=== PATIENT | female | born 1955 | race Caucasian/White ===

== ENCOUNTER 2017-11-13 16:39 | Inpatient (IN) | payer MEDICAID ==
[2017-11-13] MEDS ORDERED: HumuLIN R SC PRN (18:29)
[2017-11-13] MEDS: SNACK - Diabetic Appropriate PO SCH ×2 (18:31→20:00)
[2017-11-13] MEDS: NS 1000 ML 1,000 ML IV SCH (18:31)
[2017-11-13 18:59] LABS: BASOPHILS # (AUTO) 0.1 X10^3/uL (0.0-0.1); BASOPHILS % (AUTO) 1.2 % (0.2-1.0); EOSINOPHILS # (AUTO) 0.8 x10^3/uL (0.0-0.2); HEMATOCRIT 39.3 % (36.0-47.0); HEMOGLOBIN 13.4 g/dL (12.0-16.0); LYMPHOCYTES # (AUTO) 3.3 X10^3/uL (1.3-2.9); LYMPHOCYTES % (AUTO) 32.9 % (21.0-51.0); MEAN CORPUSCULAR HGB CONC 34.1 g/dL (33.0-35.0); MEAN CORPUSCULAR VOLUME 90.8 fL (80.0-100.0); MEAN PLATELET VOLUME 9.4 fL (7.4-11.0); MONOCYTES % (AUTO) 10.4 % (0.0-13.0); NEUTROPHILS # (AUTO) 4.8 x10^3/uL (2.2-4.8); NEUTROPHILS % (AUTO) 47.5 % (42.0-75.0); PLATELET COUNT 328 X10^3/uL (150.0-450.0); RED BLOOD COUNT 4.32 X10^6/uL (3.5-5.4); RED CELL DISTRIBUTION WIDTH 13.9 % (11.6-16.5)
[2017-11-13 19:06] LABS: ALANINE AMINOTRANSFERASE 20 Units/L (12-78); ALBUMIN 3.1 g/dL (3.4-5.0); ALKALINE PHOSPHATASE 115 Units/L (46-116); AMYLASE 37 Units/L (25-115); ASPARTATE AMINO TRANSFERASE 10 Units/L (15-37); BLOOD UREA NITROGEN 18 mg/dL (7-18); CALCIUM 8.9 mg/dL (8.5-10.1); CARBON DIOXIDE 26.6 mmol/L (21-32); CHLORIDE 103 mmol/L (98-107); COR CA(FOR HYPOALB) 9.6 mg/dL (8.5-10.1); COR NA(FOR HYPERGLY) 141 mmol/L (136-145); CREATININE 1.15 mg/dL (0.55-1.02); LIPASE 102 Units/L (73-393); MAGNESIUM 1.9 mg/dL (1.7-2.9); SODIUM 139 mmol/L (136-145); TOTAL PROTEIN 7.2 g/dL (6.4-8.2); eGFR BLACK RACES > 60 (>60); eGFR NON BLACK RACES 51 (>60)
[2017-11-13 19:08] LABS: BILIRUBIN,URINE NEGATIVE (NEGATIVE); BLOOD/HEMOGLOBIN,URINE NEGATIVE (NEGATIVE); GLUCOSE, URINE 4+ (NEGATIVE); KETONES,URINE NEGATIVE (NEGATIVE); LEUKOCYTE ESTERASE ,URINE NEGATIVE (NEGATIVE); NITRITES,URINE NEGATIVE (NEGATIVE); PROTEIN,URINE 1+ (NEGATIVE); UROBILINOGEN,URINE NORMAL (NORMAL)
[2017-11-13 19:14] LABS: APPEARANCE,URINE CLEAR (CLEAR); BACTERIA,URINE TRACE /HPF (NEGATIVE); COLOR,URINE YELLOW (YELLOW); HYALINE CASTS, URINE FEW /LPF (NEGATIVE); RBC,URINE 0-1 /HPF (NONE SEEN); SQUAMOUS EPITHELIAL CELL,UR MODERATE /HPF (NEGATIVE)
[2017-11-13] MEDS: DEMEROL INJ IVP PRN (19:25)
[2017-11-13] MEDS: COLACE CAP 100 MG PO SCH ×2 (20:00→21:00)
[2017-11-13 21:23] VITALS: BMI 31.9
[2017-11-14] MEDS: DEMEROL INJ IVP PRN ×5 (05:10→22:27)
[2017-11-14 06:10] LABS: BASOPHILS # (AUTO) 0.1 X10^3/uL (0.0-0.1); BASOPHILS % (AUTO) 1.1 % (0.2-1.0); EOSINOPHILS # (AUTO) 0.7 x10^3/uL (0.0-0.2); EOSINOPHILS % (AUTO) 8.1 % (0.9-2.9); HEMATOCRIT 37.6 % (36.0-47.0); HEMOGLOBIN 12.7 g/dL (12.0-16.0); LYMPHOCYTES # (AUTO) 3.7 X10^3/uL (1.3-2.9); LYMPHOCYTES % (AUTO) 42.7 % (21.0-51.0); MEAN CORPUSCULAR HEMOGLOBIN 30.9 pg (27.0-34.0); MEAN CORPUSCULAR HGB CONC 33.7 g/dL (33.0-35.0); MEAN CORPUSCULAR VOLUME 91.7 fL (80.0-100.0); MEAN PLATELET VOLUME 9.8 fL (7.4-11.0); MONOCYTES # (AUTO) 0.8 x10^3/uL (0.3-0.8); MONOCYTES % (AUTO) 9.7 % (0.0-13.0); NEUTROPHILS # (AUTO) 3.3 x10^3/uL (2.2-4.8); NEUTROPHILS % (AUTO) 38.4 % (42.0-75.0); PLATELET COUNT 286 X10^3/uL (150.0-450.0); RED CELL DISTRIBUTION WIDTH 13.9 % (11.6-16.5); WHITE BLOOD COUNT 8.6 X10^3/uL (3.6-10.0)
[2017-11-14 06:40] LABS: ALANINE AMINOTRANSFERASE 19 Units/L (12-78); ALBUMIN 2.7 g/dL (3.4-5.0); ALKALINE PHOSPHATASE 84 Units/L (46-116); ASPARTATE AMINO TRANSFERASE 14 Units/L (15-37); BLOOD UREA NITROGEN 19 mg/dL (7-18); CARBON DIOXIDE 28.4 mmol/L (21-32); CHLORIDE 107 mmol/L (98-107); COR NA(FOR HYPERGLY) 143 mmol/L (136-145); CREATININE 0.91 mg/dL (0.55-1.02); SODIUM 142 mmol/L (136-145); TOTAL PROTEIN 6.4 g/dL (6.4-8.2); eGFR BLACK RACES > 60 (>60); eGFR NON BLACK RACES > 60 (>60)
[2017-11-14] MEDS: NS 1000 ML 1,000 ML IV SCH ×2 (07:48→22:27)
[2017-11-14] MEDS: MILK OF MAGNESIA PO SCH (09:38)
--- NOTE | 2017-11-14 11:02 | MRI ---
MRI OF THE ABDOMEN WITHOUT IV CONTRAST - MRCP PROTOCOL Clinical indication: Intractable left lower quadrant abdominal pain Procedure: Multiplanar multi sequence MRI of the abdomen were obtained without the administration of intravenous contrast according to standard departmental MRCP protocol. Comparisons: None Findings: No significant ascites. Liver and spleen are grossly normal in appearance. Gallbladder absent. There is a filling defect within the distal common bile duct best seen on series 1301 image 64 measuring a pproximately 1.3 cm. The common bile duct is dilated to 1.2 cm. The main pancreatic duct is normal. No ductal dilatation. No large pancreatic masses. Adrenal glands are grossly normal. Kidneys demonstr ate normal cortical medullary differentiation. No hydronephrosis. Visualized bowel is grossly unremar kable. No suspicious lymph nodes. Impression: 1. Obstructing lesion within the distal common bile duct with proximal dilation as above. Reported By:
[2017-11-14] MEDS ORDERED: NULYTELY or GO-LYTELY PO SCH (14:00)
--- NOTE | 2017-11-14 14:26 | CT ---
HISTORY: Common bile duct stone on MRI. Abdominal pain in the right upper quadrant. Prior surgical hi story of cholecystectomy, COPD, asthma, diabetes and hyperlipidemia. Study: CT abdomen and pelvis with IV and oral contrast Comparison: MRI of the abdomen done 11/14/2017. Technique: Multiple axial images of the abdomen and pelvis were obtained from the lung bases to the pubic symphy sis during the administration of IV contrast. Oral contrast agents were also given. Coronal and sagi ttal images are also reviewed. Dose reduction techniques utilized automatic exposure control. Findings: The visualized portions of the lung bases are unremarkable. The liver, spleen, pancreas, kidneys, an d adrenal glands are unremarkable in their CT appearance. Gallbladder is surgically absent. There is intra and extrahepatic biliary ductal ectasia. Common bile duct measures about 1.3 cm in diameter. A filling defect is present within the distal common bile duct measures about 1.1 cm in diameter and ab out 1.33 cm in length. This is best seen on series 7, image 43 and on series 4, image 28.. No signif icant mesenteric lymphadenopathy or stranding can be observed. No free fluid or free air is seen wit hin the abdomen. No bowel wall thickening or bowel dilatation is present. The colon is unremarkable . Specifically, there is no diverticulosis noted within the sigmoid colon. The urinary bladder is gr ossly unremarkable. The uterus and ovaries are not identified and may have been surgically removed. T he bony structures are grossly intact. IMPRESSION: Evidence of intra and extrahepatic bile duct dilatation. A filling defect is present involving the di stal common bile duct as described. Surgically absent gallbladder, uterus and ovaries. Reported By:
--- NOTE | 2017-11-14 18:59 | DR.H&P ---
H&P - History & Physical for Day of: H&P Date: 11/13/17 - Chief Complaint Chief Complaint: ABDOMINAL PAIN, NV - Allergies Allergies/Adverse Reactions: Allergies Allergy/AdvReac Type Severity Reaction Status Date / Time codeine Allergy Verified 11/13/17 17:45 haloperidol [From Haldol] Allergy Verified 11/13/17 17:45 - History of Present Illness History of Present Illness: 62 WF ER ADMISSION WITH CO ABDOMINAL PAIN, BOWEL HABIT CHANGES AND N/V. CT ABD PELVIS ON ADMISSION. PT HAD MRCP PENDING - Past Medical History Past Medical History: Anxiety, Arthritis, Diabetes, GERD, Hypertension - Past Surgical History Surgical History: Cholecystectomy, Hysterectomy, Ortho Surgery - Family History Family Medical History: Diabetes Mellitus, Cancer, Hypertension - Social History Does patient currently use any type of tobacco product: Yes Have you used tobacco products in the last 12 months: Yes Type of Tobacco Use: Cigarettes Does any household member use tobacco: Yes Alcohol Use: None Drug Use: None, Prescription Drugs - Medications Home Medications: Acyclovir 400 mg PO Q8H 11/13/17 [History Confirmed 11/13/17] Carvedilol [COREG TAB 6.25 MG *] 6.25 mg PO BID 11/13/17 [History Confirmed ] Cetirizine HCl [Zyrtec] 10 mg PO DAILY 11/13/17 [History Confirmed 11/13/17] Citalopram 20 mg Tab [CELEXA 20 MG *] 2 tabs PO DAILY 11/13/17 [History Confirmed 11/13/17] Estradiol 1 mg PO DAILY 11/13/17 [History Confirmed 11/13/17] Furosemide 20 mg PO BID 11/13/17 [History Confirmed 11/13/17] Gemfibrozil 600 mg PO BID 11/13/17 [History Confirmed 11/13/17] Levocetirizine Dihydrochloride [Xyzal] 5 mg PO HS 11/13/17 [History Confirmed ] Levothyroxine Sodium [SYNTHROID 100 mcg *] 0.1 mg PO DAILY 11/13/17 [History Confirmed 11/13/17] Montelukast Sodium 10 mg PO DAILY 11/13/17 [History Confirmed 11/13/17] Omeprazole 40 mg PO DAILY 11/13/17 [History Confirmed 11/13/17] Potassium Chloride [K-Tab ER] 10 mg PO DAILY 11/13/17 [History Confirmed ] Promethazine HCl 25 mg PO Q4-6H PRN 11/13/17 [History Confirmed 11/13/17] Ranitidine HCl 300 mg PO BID 11/13/17 [History Confirmed 11/13/17] Temazepam 30 mg PO HS 11/13/17 [History Confirmed 11/13/17] - Review of Systems Constitutional: Chills, Weakness Eyes: No Symptoms Reported ENT: No Symptoms Reported Respiratory: No Symptoms Reported Cardiovascular: No Symptoms Reported Gastrointestinal: Nausea, Vomiting, Abdominal Pain Genitourinary: No Symptoms Reported Musculoskeletal: Back Pain, Leg Pain Skin: No Symptoms Reported Neurological: No Symptoms Reported - Physical Exam Vital Signs: Temperature 97.6 F Pulse Rate [Left Brachial] 69 Pulse Rate [Right Brachial] 72 Respiratory Rate 18 Blood Pressure [Left Arm] 107/71 Blood Pressure [Right Arm] 109/59 O2 Sat by Pulse Oximetry 96 Oriented: Normal Eyes: Normal Ear: Normal Nose: Normal Throat: Normal Respiratory: RLL Diminished, LLL Diminished Cardiovascular: Normal : Normal Auscultation: Bowel Sounds: Normal Palpation: Normal Tenderness: RUQ, Epigastric Skin: Decreased Turgur Musculoskeletal: Back:Lumbar Psychiatric: Anxiety Affect: Anxious Speech Pattern: Clear, Appropriate - Assessment/Plan (1) Abdominal pain Status: Acute Plan: ADMIT, MRCP. AM LABS, PAIN AND NAUSEA CONTROL. BLOOD SUGAR MONITORING. GENTLE IV HYDRATION. CONFIRM HOME MEDS (2) Hx of gallstones Status: Acute (3) Abnormal LFTs (liver function tests) Status: Acute (4) Arthralgia Status: Acute
[2017-11-14] MEDS: COLACE CAP 100 MG PO SCH (20:29)
[2017-11-14] MEDS: SNACK - Diabetic Appropriate PO SCH (22:10)
[2017-11-15] MEDS: ZOFRAN INJ 4 MG VIAL IVP PRN ×2 (01:13→11:43)
[2017-11-15] MEDS: DEMEROL INJ IVP PRN ×2 (05:06→10:10)
[2017-11-15 06:03] LABS: ALANINE AMINOTRANSFERASE 24 Units/L (12-78); ALBUMIN 2.8 g/dL (3.4-5.0); ALKALINE PHOSPHATASE 79 Units/L (46-116); ASPARTATE AMINO TRANSFERASE 21 Units/L (15-37); BLOOD UREA NITROGEN 8 mg/dL (7-18); CALCIUM 7.6 mg/dL (8.5-10.1); CARBON DIOXIDE 29.3 mmol/L (21-32); CHLORIDE 108 mmol/L (98-107); COR CA(FOR HYPOALB) 8.6 mg/dL (8.5-10.1); SODIUM 145 mmol/L (136-145); TOTAL PROTEIN 6.1 g/dL (6.4-8.2); eGFR BLACK RACES > 60 (>60); eGFR NON BLACK RACES > 60 (>60)
[2017-11-15 07:45] LABS: BASOPHILS # (AUTO) 0.1 X10^3/uL (0.0-0.1); BASOPHILS % (AUTO) 0.8 % (0.2-1.0); EOSINOPHILS # (AUTO) 0.6 x10^3/uL (0.0-0.2); EOSINOPHILS % (AUTO) 7.4 % (0.9-2.9); HEMATOCRIT 37.5 % (36.0-47.0); HEMOGLOBIN 12.6 g/dL (12.0-16.0); LYMPHOCYTES # (AUTO) 3.1 X10^3/uL (1.3-2.9); LYMPHOCYTES % (AUTO) 38.4 % (21.0-51.0); MEAN CORPUSCULAR HEMOGLOBIN 30.7 pg (27.0-34.0); MEAN CORPUSCULAR HGB CONC 33.5 g/dL (33.0-35.0); MEAN CORPUSCULAR VOLUME 91.7 fL (80.0-100.0); MEAN PLATELET VOLUME 9.9 fL (7.4-11.0); MONOCYTES # (AUTO) 0.8 x10^3/uL (0.3-0.8); MONOCYTES % (AUTO) 9.4 % (0.0-13.0); NEUTROPHILS # (AUTO) 3.5 x10^3/uL (2.2-4.8); PLATELET COUNT 292 X10^3/uL (150.0-450.0); RED BLOOD COUNT 4.08 X10^6/uL (3.5-5.4); RED CELL DISTRIBUTION WIDTH 14.1 % (11.6-16.5)
[2017-11-15] MEDS: MILK OF MAGNESIA PO SCH (08:34)
[2017-11-15 11:30] VITALS: BP 112/55
== END 2017-11-15 13:00 | disposition home or self-care (01) | DRG 391 ==
LOC: ICU 16:39 → OBSVTOIN 11-14 10:00 → MED/SURG 11-14 12:13
PROVIDERS: ADMIT Internal Medicine; ATTEND Internal Medicine
DX: R10.84 Generalized abdominal pain (principal); K83.1 Obstruction of bile duct; R94.5 Abnormal results of liver function studies; R11.2 Nausea with vomiting, unspecified; R19.4 Change in bowel habit; E11.65 Type 2 diabetes mellitus with hyperglycemia; K21.9 Gastro-esophageal reflux disease without esophagitis; I10 Essential (primary) hypertension; M25.50 Pain in unspecified joint; R26.89 Other abnormalities of gait and mobility
CPT/HCPCS: 36415; 74177; 74181; 80053; 81001; 82150; 82378; 83690; 83735; 85025; 86316; 87086; A4222; G0378; J2175; J2405

== ENCOUNTER 2022-10-17 11:12 | Observation (INO) ==
[2022-10-17] MEDS ORDERED: PHENERGAN INJ 25 MG IM PRN (13:00)
[2022-10-17] MEDS ORDERED: MORPHINE SULFATE INJ 2 MG INJ IVP PRN (13:00)
[2022-10-17 13:38] LABS: BASOPHILS # (AUTO) 0.1 X10^3/uL (0.0-0.1); BASOPHILS % (AUTO) 0.7 % (0.2-1.0); EOSINOPHILS # (AUTO) 0.6 x10^3/uL (0.0-0.2); EOSINOPHILS % (AUTO) 4.7 % (0.9-2.9); LYMPHOCYTES # (AUTO) 2.9 X10^3/uL (1.3-2.9); LYMPHOCYTES % (AUTO) 24.6 % (21.0-51.0); MEAN CORPUSCULAR HGB CONC 32.5 g/dL (33.0-35.0); MEAN CORPUSCULAR VOLUME 89.4 fL (80.0-100.0); MEAN PLATELET VOLUME 8.5 fL (7.4-11.0); MONOCYTES % (AUTO) 8.4 % (0.0-13.0); NEUTROPHILS # (AUTO) 7.3 x10^3/uL (2.2-4.8); NEUTROPHILS % (AUTO) 61.6 % (42.0-75.0); RED BLOOD COUNT 4.47 X10^6/uL (3.5-5.4); WHITE BLOOD COUNT 11.9 X10^3/uL (3.6-10.0)
[2022-10-17 13:49] LABS: ALANINE AMINOTRANSFERASE 24 Units/L (12-78); ALBUMIN 3.6 g/dL (3.4-5.0); ALKALINE PHOSPHATASE 86 Units/L (46-116); AMYLASE 41 Units/L (25-115); ASPARTATE AMINO TRANSFERASE 21 Units/L (15-37); BLOOD UREA NITROGEN 45 mg/dL (7-18); CALCIUM 8.7 mg/dL (8.5-10.1); CHLORIDE 101 mmol/L (98-107); COR NA(FOR HYPERGLY) 141 mmol/L (136-145); CREATININE 2.57 mg/dL (0.55-1.02); LIPASE 82 Units/L (73-393); SODIUM 139 mmol/L (136-145); TOTAL PROTEIN 7.9 g/dL (6.4-8.2); eGFR NON BLACK RACES 20 (>60)
[2022-10-17 13:52] LABS: SERUM ACETONE NEGATIVE (NEGATIVE)
[2022-10-17] MEDS: NS 1,000 ML IV 1,000 ML IV SCH ×2 (13:52→20:46)
[2022-10-17] MEDS: PROTONIX INJ 40 MG VIAL IVP SCH ×2 (13:52→20:45)
[2022-10-17 13:57] VITALS: BMI 35.6
[2022-10-17] MEDS: ZOFRAN INJ 4 MG VIAL IVP PRN (16:15)
--- NOTE | 2022-10-17 19:27 | CT ---
HISTORYINTRACTABLE N/V/D.brABD PAINSTUDYABDOMEN/PELVIS W/O CONCOMPARISONCT abdomen/pelvis an MRCP reports from November 14, 2017. CT report from October 10, 2020TECHNIQUENon-contrasted axial CT images of the abdomen and pelvis were obtained and reformatted into coronal and sagittal planes for further evaluation. Enteric contrast was administered.Radiation dose: 640.98 mGy-cm total DLPFINDINGSLung bases are clear.Stomach appears normal.Solid visceral organs of the upper abdomen are unremarkable.Status post cholecystectomy.No intra or extrahepatic biliary dilatation.Unremarkable appearance of the kidneys.No hydronephrosis, hydroureter or ureteral calculus.Unremarkable appearance of the urinary bladder.Normal appearance of the small and large bowel.Status post hysterectomy.Status post appendectomy.No pneumoperitoneum.No significant fluid collection.No adenopathy.No acute osseous abnormality.IMPRESSIONNo acute intra-abdominal abnormality detected.Electronically signed by: Jono Montano (Oct 17, 2022 19:26:01)
[2022-10-17 19:46] LABS: BILIRUBIN,URINE NEGATIVE (NEGATIVE); BLOOD/HEMOGLOBIN,URINE NEGATIVE (NEGATIVE); GLUCOSE, URINE NEGATIVE (NEGATIVE); KETONES,URINE NEGATIVE (NEGATIVE); LEUKOCYTE ESTERASE ,URINE NEGATIVE (NEGATIVE); NITRITES,URINE NEGATIVE (NEGATIVE); PROTEIN,URINE NEGATIVE (NEGATIVE); UROBILINOGEN,URINE NORMAL (NORMAL)
[2022-10-17 19:51] LABS: APPEARANCE,URINE CLEAR (CLEAR); COLOR,URINE YELLOW (YELLOW)
[2022-10-17] MEDS: TYLENOL 325 MG TAB PO PRN (20:44)
[2022-10-17] MEDS: SNACK - Diabetic Appropriate PO SCH (20:44)
[2022-10-18] MEDS: RESTORIL CAP 15 MG PO PRN ×2 (00:26→21:17)
[2022-10-18] MEDS: ZOFRAN INJ 4 MG VIAL IVP PRN (05:30)
[2022-10-18] MEDS: NS 1,000 ML IV 1,000 ML IV SCH ×3 (05:36→21:15)
[2022-10-18 06:43] LABS: BASOPHILS # (AUTO) 0.1 X10^3/uL (0.0-0.1); BASOPHILS % (AUTO) 0.8 % (0.2-1.0); EOSINOPHILS # (AUTO) 0.6 x10^3/uL (0.0-0.2); EOSINOPHILS % (AUTO) 5.5 % (0.9-2.9); HEMATOCRIT 35.9 % (36.0-47.0); HEMOGLOBIN 11.6 g/dL (12.0-16.0); LYMPHOCYTES # (AUTO) 3.2 X10^3/uL (1.3-2.9); LYMPHOCYTES % (AUTO) 29.8 % (21.0-51.0); MEAN CORPUSCULAR HEMOGLOBIN 28.9 pg (27.0-34.0); MEAN CORPUSCULAR HGB CONC 32.4 g/dL (33.0-35.0); MEAN CORPUSCULAR VOLUME 89.3 fL (80.0-100.0); MEAN PLATELET VOLUME 9.3 fL (7.4-11.0); MONOCYTES # (AUTO) 0.9 x10^3/uL (0.3-0.8); MONOCYTES % (AUTO) 8.6 % (0.0-13.0); NEUTROPHILS % (AUTO) 55.3 % (42.0-75.0); RED BLOOD COUNT 4.02 X10^6/uL (3.5-5.4); RED CELL DISTRIBUTION WIDTH 15.1 % (11.6-16.5); WHITE BLOOD COUNT 10.9 X10^3/uL (3.6-10.0)
[2022-10-18] MEDS: TYLENOL 325 MG TAB PO PRN (06:56)
[2022-10-18 07:09] LABS: ALBUMIN 3.1 g/dL (3.4-5.0); CARBON DIOXIDE 28.4 mmol/L (21-32); COR CA(FOR HYPOALB) 8.7 mg/dL (8.5-10.1); CREATININE 1.43 mg/dL (0.55-1.02); TOTAL PROTEIN 6.8 g/dL (6.4-8.2)
[2022-10-18] MEDS: PROTONIX INJ 40 MG VIAL IVP SCH ×2 (08:39→21:17)
[2022-10-18] MEDS ORDERED: PEPCID 20 MG VIAL IVP ONE (08:54)
[2022-10-18] MEDS: BENTYL CAP 10 MG PO SCH ×2 (10:50→14:41)
[2022-10-18] MEDS ORDERED: LOPRESSOR TAB 25 MG PO ONE (12:59)
[2022-10-18] MEDS: LOVENOX INJ 40 MG SYR SC SCH (13:13)
[2022-10-18] MEDS: ULTRAM PO PRN (13:47)
[2022-10-18] MEDS: ZESTRIL TAB 10 MG PO SCH (13:50)
[2022-10-18] MEDS: NovoLIN R (or HumuLIN R) SUBCUT PRN ×2 (14:41→18:12)
[2022-10-18] MEDS: LIPITOR TAB 40 MG PO SCH (14:47)
[2022-10-18] MEDS: CELEXA PO SCH (14:47)
[2022-10-18] MEDS: SYNTHROID 75 mcg TAB PO SCH (14:48)
[2022-10-18] MEDS: LOPRESSOR TAB 25 MG PO SCH (21:17)
[2022-10-18] MEDS: SNACK - Diabetic Appropriate PO SCH (21:18)
[2022-10-19] MEDS: NS 1,000 ML IV 1,000 ML IV SCH (05:44)
[2022-10-19 06:45] LABS: ALANINE AMINOTRANSFERASE 20 Units/L (12-78); ALBUMIN 2.9 g/dL (3.4-5.0); ALKALINE PHOSPHATASE 65 Units/L (46-116); ASPARTATE AMINO TRANSFERASE 17 Units/L (15-37); BLOOD UREA NITROGEN 12 mg/dL (7-18); CALCIUM 7.9 mg/dL (8.5-10.1); CARBON DIOXIDE 27.8 mmol/L (21-32); CHLORIDE 105 mmol/L (98-107); COR CA(FOR HYPOALB) 8.8 mg/dL (8.5-10.1); COR NA(FOR HYPERGLY) 142 mmol/L (136-145); CREATININE 0.97 mg/dL (0.55-1.02); SODIUM 141 mmol/L (136-145); TOTAL PROTEIN 6.5 g/dL (6.4-8.2); eGFR NON BLACK RACES > 60 (>60)
[2022-10-19 06:46] LABS: BASOPHILS # (AUTO) 0.1 X10^3/uL (0.0-0.1); BASOPHILS % (AUTO) 0.7 % (0.2-1.0); EOSINOPHILS # (AUTO) 0.4 x10^3/uL (0.0-0.2); EOSINOPHILS % (AUTO) 4.5 % (0.9-2.9); HEMATOCRIT 35.9 % (36.0-47.0); HEMOGLOBIN 11.7 g/dL (12.0-16.0); LYMPHOCYTES # (AUTO) 2.6 X10^3/uL (1.3-2.9); LYMPHOCYTES % (AUTO) 27.5 % (21.0-51.0); MEAN CORPUSCULAR HEMOGLOBIN 29.3 pg (27.0-34.0); MEAN CORPUSCULAR HGB CONC 32.6 g/dL (33.0-35.0); MEAN CORPUSCULAR VOLUME 89.9 fL (80.0-100.0); MEAN PLATELET VOLUME 9.1 fL (7.4-11.0); MONOCYTES # (AUTO) 0.9 x10^3/uL (0.3-0.8); MONOCYTES % (AUTO) 9.1 % (0.0-13.0); NEUTROPHILS # (AUTO) 5.6 x10^3/uL (2.2-4.8); NEUTROPHILS % (AUTO) 58.2 % (42.0-75.0); RED BLOOD COUNT 3.99 X10^6/uL (3.5-5.4); WHITE BLOOD COUNT 9.6 X10^3/uL (3.6-10.0)
[2022-10-19] MEDS ORDERED: ZESTRIL TAB 10 MG PO SCH (09:00)
[2022-10-19] MEDS: PROTONIX INJ 40 MG VIAL IVP SCH (09:06)
[2022-10-19] MEDS: SYNTHROID 75 mcg TAB PO SCH (09:06)
[2022-10-19] MEDS: CELEXA PO SCH (09:06)
[2022-10-19] MEDS: ULTRAM PO PRN (09:07)
[2022-10-19] MEDS: LOPRESSOR TAB 25 MG PO SCH (09:07)
[2022-10-19] MEDS: LIPITOR TAB 40 MG PO SCH (09:07)
[2022-10-19] MEDS: LOVENOX INJ 40 MG SYR SC SCH (09:08)
[2022-10-19] MEDS: ZESTRIL TAB 10 MG PO SCH (09:09)
[2022-10-19 11:46] VITALS: BP 131/74
== END 2022-10-19 10:30 | disposition home or self-care (01) ==
LOC: MED/SURG
PROVIDERS: ADMIT Internal Medicine; ATTEND Internal Medicine
DX: K52.89 Other specified noninfective gastroenteritis and colitis; R11.2 Nausea with vomiting, unspecified; I10 Essential (primary) hypertension; N17.8 Other acute kidney failure; K21.9 Gastro-esophageal reflux disease without esophagitis; E03.8 Other specified hypothyroidism; R19.7 Diarrhea, unspecified; E86.0 Dehydration; E11.65 Type 2 diabetes mellitus with hyperglycemia